=== PATIENT | female | born 1980 | race Caucasian/White ===

== ENCOUNTER → 2024-10-31 09:29 | Outpatient (REF) | payer OTHER, SELFPAY | LOC: RAD 09:29 | PROVIDERS: ATTENDING PHYSICIAN Obstetrics & Gynecology | DX: N92.0 Excessive and frequent menstruation with regular cycle (principal) | CPT/HCPCS: 76830; 76856 ==

== ENCOUNTER → 2024-11-03 09:09 | Outpatient (REF) | payer OTHER, SELFPAY | LOC: WDC 09:09 | PROVIDERS: ATTENDING PHYSICIAN Obstetrics & Gynecology | DX: R92.8 Other abnormal and inconclusive findings on diagnostic imaging of breast (principal) | CPT/HCPCS: 76642; 77061; 77065 ==

== ENCOUNTER 2024-11-03 12:09 | Emergency (ER) | payer OTHER, SELFPAY ==
[2024-11-03] VITALS (7 sets, daily range): BP systolic 136–153; BP diastolic 90–108; BMI 23.4
[2024-11-03 13:10] LABS: % Basophils 0.8 % (0-2); % Eosinophils 3.8 % (0-6); % Immature Granulocytes 0.2 % (0-0.5); % Monocytes 8.5 % (1.7-9.3); % Neutrophils 45.7 % (42.2-75.2); Absolute Basophils 0.1 10^3/uL (0-0.2); Absolute Eosinophils 0.3 10^3/uL (0-0.7); Absolute Lymphocytes 3.5 10^3/uL (1.2-3.4); Absolute Monocytes 0.7 10^3/uL (0.1-0.6); Absolute Neutrophils 3.9 10^3/uL (1.4-6.5); Hematocrit 42.9 % (37.0-47.0); Hemoglobin 13.9 g/dL (12.0-16.0); Mean Corp Hgb Conc. 32.4 g/dL (33.0-37.0); Mean Corpuscular Hgb 27.3 pg (27.0-31.0); Mean Corpuscular Volume 84.1 fL (81.0-99.0); Mean Platelet Volume 11.8 fL (7.4-10.4); Nucleated Red Blood Cells % 0 %; Platelet Count 239 10^3/uL (130-400); Red Cell Dist. Width 13.5 % (11.5-14.5); White Blood Cell Count 8.5 10^3/uL (4.8-10.8)
[2024-11-03 13:20] LABS: HCG, Serum Qualitative Screen Negative
[2024-11-03 13:24] LABS: ALT (SGPT) 17 U/L (0-35); AST (SGOT) 20 U/L (14-36); Albumin 4.4 g/dl (3.5-5.0); Alkaline Phosphatase 69 U/L (38-126); Blood Urea Nitrogen 10 mg/dl (7-17); Calcium 9.7 mg/dl (8.4-10.2); Carbon Dioxide 29 mmol/L (22-30); Chloride 102 mmol/L (98-107); Estimated Creatinine Clearance 109 ml/min; Glucose 82 mg/dl (70-99); Lipase 101 U/L (23-300); Potassium 3.9 mmol/L (3.5-5.1); Sodium 139 mmol/L (135-145); Total Bilirubin 0.6 mg/dl (0.2-1.3); Total Protein 7.6 g/dl (6.3-8.2); eGFR > 60.00
[2024-11-03] MEDS: NSS 500 IV (13:45)
--- NOTE | 2024-11-03 15:52 | ED.GENMED ---
History of Present Illness
General
Chief Complaint: Abdominal Pain
Time Seen by Provider: 11/03/24 13:02
History of Present Illness
History of Present Illness:
4 days of abdominal pain. Left-sided. Worse with position and movement.
Past History
Past History
ED Past Medical History: Asthma
Social History
Tobacco: Non-smoker
Alcohol: Occasional
Drug: None
Personal:
Living: with family
Employment: Employed
Family History
Family History: Hypertension
Phy Exam
Physical Exam
Physical Exam:
GENERAL: Alert and oriented in no apparent distress
EYE: Orbits normal.
NECK: Supple
CARDIAC: Regular rate and rhythm without any obvious murmurs.
LUNGS: Clear breath sounds,normal
ABDOMEN: Soft, mild to moderate reproducible left mid abdominal tenderness. No CVA tenderness. No rash no rebound or guarding no mass or hernia
NEUROLOGICAL: Alert and oriented , grossly non-focal
SKIN: Warm and dry, no rash or lesion, no discoloration, skin intact.
MUSCULOSKELETAL: No edema,no deformity.Good color
PSYCH: Normal and appropriate interaction.
Course
Orders/Labs/Results
Orders:
Orders
11/03/24 12:12
Electrocardiogram (*1) Urgent
Reason for Study: Abdominal Pain
11/03/24 12:13
EKG- Treatment ONCE
11/03/24 12:37
IV Insert/Care/Rem.- Treatment PRN
Test Result ONCE
11/03/24 12:57
Complete Blood Count/With Diff Urgent
Comprehensive Metabolic Panel Urgent
HCG, Serum Qualitative Screen Urgent
Comment: Notify provider if positive test present
Lipase Urgent
11/03/24 13:24
CT Abd/Pel (IV only)-[facility] only Urgent
Comment:
Reason For Exam: Left sided mid abdominal pain to the flank
IV Insert/Care/Rem.- Treatment PRN
0.9% Sodium Chloride 500 ml [Nss] 500 ml IV BOLUS
11/03/24 15:06
Urinalysis Reflex To Culture Urgent
Abnormal Lab Results
11/03/24
12:57
MCHC 32.4 L g/dL
(33.0-37.0)
MPV 11.8 H fL
(7.4-10.4)
Absolute Lymphs (auto) 3.5 H 10^3/uL
(1.2-3.4)
Absolute Monos (auto) 0.7 H 10^3/uL
(0.1-0.6)
11/03/24 12:57
11/03/24 12:57
Vital Signs
Initial and Last Documented VS:
Initial Vital Signs
Temp Pulse Resp BP Pulse Ox
98.8 F 101 18 153/108 100
11/03/24 12:10 11/03/24 12:10 11/03/24 12:10 11/03/24 12:10 11/03/24 12:10
Last Documented Vital Signs
Temp Pulse Resp BP Pulse Ox
98.6 F 90 16 139/90 100
11/03/24 12:50 11/03/24 15:35 11/03/24 15:35 11/03/24 15:35 11/03/24 15:35
MDM/Problems Addressed
Differential Diagnosis Includes:
Colitis versus diverticulitis versus kidney issue versus musculoskeletal. Workup in progress
*Radiology
Radiology exam reviewed: radiology read reviewed (CT scan shows thickening of the descending colon. Discussed with GI.)
*Pulse Oximetry
Patient hypoxic: no
*Critical Care Note
Total Time (30-74mins, 75-104mins- exclusive of procedures): Not Applicable
Data Reviewed
Review of Other/Old Records Reveals: Labs
Update Note
Update Note:
Discussed with GI. Thickening of descending colon. Some inflammatory changes. Offered inpatient versus outpatient follow-up. Patient is comfortable with close outpatient follow-up. Discussed with GI. No antibiotics for now. They will evaluate
tomorrow they will see tomorrow at 1045
ED Attending Note
-
Portions of this chart may have been created with voice recognition software.� Occasional wrong word or��sound alike� substitutions may have occurred due to the inherent limitations of voice recognition software.
Discharge Plan
Departure
Patient Disposition: Home (Routine Discharge)
Date of Disposition: 11/03/24
Time of Disposition: 15:52
Patient with high blood pressure during this ER visit?: Yes
Discharge Problem:
Abdominal pain, Descending colon inflammation
Instructions: Abdominal Pain, BLOOD PRESSURE
Prescriptions:
No Action
vit no.[id number] [ Vitamin] 1 EACH tablet
1 mg PO DAILY
Pepcid Complete Tablet Chew
1 mg PO PRN
Xopenex Inhalant Solution:
1 mg PO PRN
oxycodone-acetaminophen 5 MG/325 MG tablet
1 tab PO Q4HPRN PRN (Reason: moderate pain) Qty: 0 0RF
oxycodone-acetaminophen 5 MG/325 MG tablet
2 tab PO Q6HPRN PRN (Reason: severe pain) Qty: 0 0RF
ibuprofen 600 MG tablet
600 mg PO Q4HPRN PRN (Reason: moderate pain/cramps) Qty: 0 0RF
Referrals:
NONE,* [Family Provider] -
Jose Manuel Hutton, DO [Active] -
Activity Restrictions/Additional Instructions:
Go to the office at 1045 for an 11 AM an appointment tomorrow
Interventions
Interventions:
*Risk Screen - Suicide Last Done: 11/03/24 12:10
*General Assessment Last Done: 11/03/24 12:10
*Neglect/Abuse Screening Last Done: 11/03/24 12:10
*ED- Fall Risk Assessment Last Done: 11/03/24 12:50
*ED COVID-19 Vaccine History Last Done: 11/03/24 12:10
AJ-Qborxv-Xwtkhaanrv Assessment Last Done: 11/03/24 12:50
Discharge Date and Time
Print Language: UKRAINIAN
--- NOTE | 2024-11-03 16:05 | EDRN ---
Reviewed discharge instructions with patient. Verbalized understanding.
== END 2024-11-03 16:09 | disposition home or self-care (01) ==
LOC: EMR 12:09
PROVIDERS: EMERGENCY PHYSICIAN Emergency Medicine
DX: R10.9 Unspecified abdominal pain (principal); K52.9 Noninfective gastroenteritis and colitis, unspecified; J45.909 Unspecified asthma, uncomplicated; Z82.49 Family history of ischemic heart disease and other diseases of the circulatory system; Z90.721 Acquired absence of ovaries, unilateral
CPT/HCPCS: 99284; 96360; 74177; 80053; 83690; 84703; 85025; 93005; Q9967

== ENCOUNTER 2024-12-09 06:05 | Day surgery (SDC) | payer OTHER, SELFPAY ==
[2024-12-09] VITALS (8 sets, daily range): BP systolic 114–129; BP diastolic 78–97; BMI 26.1
[2024-12-09] MEDS: NEURONTIN 300 MG PO (06:21)
[2024-12-09] MEDS: TYLENOL 1000 MG PO (06:21)
[2024-12-09] MEDS: NORMOSOL-R/PLASMALYTE-A 1000 IV (06:29)
--- NOTE | 2024-12-09 07:46 | W.IMMPOSTOP ---
Surgical Immed Post Op Note
-
Primary Surgeon: Lidia Littlejohn DO
Assisting Surgeon: none
Pre-op Diagnosis: Focal complex endometrial hyperplasia without atypia; menorrhagia
Post-op Diagnosis: same
Procedure Performed: Hysteroscopy D&C
Anesthesia Type: general LMA Dr. Maxwell
Specimen / Cultures: 1. endocervical curettings 2. endometrial curettings
Estimated Blood Loss: 2mL
Fluid deficit: 20mL NSS
Complications: none
Operative Findings: Uterus sounded to 8 cm. Bilateral tubal ostia seen. Upper right uterine fundus there is an area of tissue proliferation noted. No mass.
Counts correct times 2.
Stable to recovery.
== END 2024-12-09 09:30 | disposition home or self-care (01) ==
LOC: SDS 06:05
PROVIDERS: ATTENDING PHYSICIAN Obstetrics & Gynecology
DX: N85.01 Benign endometrial hyperplasia (principal); N85.8 Other specified noninflammatory disorders of uterus
CPT/HCPCS: 58558; 88305; 86850; 86900; 86901

== ENCOUNTER 2025-01-03 06:17 | Day surgery (SDC) | payer OTHER, SELFPAY ==
[2025-01-03] VITALS (11 sets, daily range): BP systolic 114–134; BP diastolic 72–93; BMI 26.6
[2025-01-03] MEDS: NEURONTIN 300 MG PO (08:58)
[2025-01-03] MEDS: TYLENOL 1000 MG PO (08:58)
[2025-01-03 09:04] LABS: HCG, Urine Qualitative Screen Negative
--- NOTE | 2025-01-03 16:05 | W.IMMPOSTOP ---
Surgical Immed Post Op Note
-
Primary Surgeon: Lidia panda DO
Assisting Surgeon: none
Pre-op Diagnosis: Complex endometrial hyperplasia without atypia; menorrhagia
Post-op Diagnosis: same pending pathology
Procedure Performed: Robotic assisted total laparoscopic hysterectomy bilateral salpingectomy
Anesthesia Type: general ET, TAP block Dr. Maxwell
Specimen / Cultures: uterus, cervix and bilateral fallopian tubes.
Estimated Blood Loss: 15 mL
Urine output: 550mL clear yellow
Complications: none
Operative Findings: Uterus normal size, sounded to 8 cm, heart shaped. Normal appearing tubes and ovaries.
Counts correct times 2.
Stable to recovery.
[2025-01-03] MEDS: TYLENOL 650 MG PO (16:15)
[2025-01-03] MEDS: ROXICODONE 5 MG PO (16:46)
[2025-01-03] MEDS: ZOFRAN 4 MG IV (17:51)
== END 2025-01-03 19:00 | disposition home or self-care (01) ==
LOC: SDS 06:17
PROVIDERS: ATTENDING PHYSICIAN Obstetrics & Gynecology
DX: N85.01 Benign endometrial hyperplasia (principal); N92.0 Excessive and frequent menstruation with regular cycle; N85.02 Endometrial intraepithelial neoplasia [EIN]; N72 Inflammatory disease of cervix uteri; N80.03 Adenomyosis of the uterus; D25.1 Intramural leiomyoma of uterus; N83.8 Other noninflammatory disorders of ovary, fallopian tube and broad ligament
CPT/HCPCS: 58571; 88307; 81025; 86850; 86900; 86901; 86920; 86922

== ENCOUNTER → 2025-05-15 07:46 | Outpatient (REF) | payer OTHER, SELFPAY | LOC: WDC 07:46 | PROVIDERS: ATTENDING PHYSICIAN Obstetrics & Gynecology | DX: R92.8 Other abnormal and inconclusive findings on diagnostic imaging of breast (principal) | CPT/HCPCS: 76642 ==